=== PATIENT | female | born 1935 | race Caucasian/White ===

== ENCOUNTER 2019-05-07 16:27 | Inpatient (IN) | payer MEDICAID, MEDICARE ==
[~2019-05-07] VITALS: Ht 160 cm; Wt 77.1 kg
[2019-05-07] MEDS ORDERED: IV NORMAL SALINE 1000 ML BAG IV ONE (17:30)
[2019-05-07 17:58] LABS: BASOPHILS % (AUTO) 0.3 % (0.0-2.0); CARBON DIOXIDE 24 mmol/L (21-32); CHLORIDE 107 mmol/L (98-107); CREATININE 0.6 mg/dL (0.6-1.3); EOSINOPHILS % (AUTO) 0.1 % (0.0-7.0); GLUCOSE 125 mg/dL (74-106); HEMATOCRIT 37.8 % (31.2-41.9); HEMOGLOBIN 12.8 g/dL (10.9-14.3); LYMPHOCYTES # (AUTO) 0.9 K/uL (20.0-40.0); LYMPHOCYTES % (AUTO) 9.5 % (20.5-51.5); MEAN CORPUSCULAR HEMOGLOBIN 27.7 uug (24.7-32.8); MEAN CORPUSCULAR HGB CONC 34 g/dL (32.3-35.6); MEAN CORPUSCULAR VOLUME 81.8 fL (75.5-95.3); MONOCYTES # (AUTO) 0.7 K/uL (2.0-10.0); MONOCYTES % (AUTO) 7.1 % (0.0-11.0); NEUTROPHILS # (AUTO) 7.7 K/uL (1.8-8.9); PLATELET COUNT (AUTO) 173 K/uL (179-408); POTASSIUM 3.8 mmol/L (3.5-5.1); RED BLOOD CELL COUNT(AUTO) 4.62 MIL/uL (3.63-4.92); UREA NITROGEN, BLOOD 15 mg/dL (7-18); WHITE BLOOD COUNT (AUTO) 9.3 K/uL (3.8-11.8)
[2019-05-07] MEDS ORDERED: MORPHINE SULFATE 2 MG/1 ML DISP.SYRIN ONE ×2 (17:58→20:19)
[2019-05-07] MEDS ORDERED: ONDANSETRON 4 MG/2 ML VIAL ONE (17:58)
[2019-05-07] MEDS ORDERED: ONDANSETRON 4 MG/2 ML VIAL IV ONE (18:00)
[2019-05-07] MEDS ORDERED: MORPHINE SULFATE 2 MG/1 ML DISP.SYRIN IV ONE ×3 (18:00→22:15)
[2019-05-07 18:03] LABS: ALANINE AMINOTRANSFERASE 17 U/L (14-59); ALKALINE PHOSPHATASE 66 U/L (50-136); ASPARTATE AMINOTRANSFERASE 16 U/L (15-37); BILIRUBIN,DIRECT 0.2 mg/dL (0.0-0.2); BILIRUBIN,TOTAL 0.6 mg/dL (0.2-1.0); TOTAL PROTEIN, SERUM 6.7 g/dL (6.4-8.2)
--- NOTE | 2019-05-07 18:22 | NUR ---
URINE COLLECTED AND SENT TO LAB.
--- NOTE | 2019-05-07 18:30 | NUR ---
PT SIGNED CONSENT FOR IV CONTRAST FOR CTA, PLACED IN THE CHART.
[2019-05-07] MEDS ORDERED: SWABABLE VALVE TRANSFER SET EA MC ONE (18:48)
[2019-05-07] MEDS ORDERED: IOHEXOL 350 100 ML INFUS..BTL ONE (18:49)
[2019-05-07] MEDS ORDERED: IV NORMAL SALINE 250 ML IV ONE (18:49)
[2019-05-07 18:52] LABS: *BILIRUBIN,URIN NEGATIVE (NEGATIVE); *CLARITY,URINE CLEAR (CLEAR); *COLOR,URINE YELLOW (YELLOW); *KETONES,URINE TRACE (NEGATIVE); *UROBILINOGEN,URINE 0.2 E.U./dl (NORMAL); LEUKOCYTE ESTERASE ,URINE TRACE (NEGATIVE); NITRITE, URINE NEGATIVE (NEGATIVE); UGLUCOSE NEGATIVE (NEGATIVE)
--- NOTE | 2019-05-07 18:56 | NUR ---
PT OUT OF ER FOR CTA.
[2019-05-07 19:01] LABS: *BLOOD, URINE TRACE INTACT (NEGATIVE)
[2019-05-07 19:03] LABS: BACTERIA,URINE FEW /HPF (NONE SEEN); SQUAMOUS EPITHELIAL CELL,UR MANY /HPF (NONE SEEN)
--- NOTE | 2019-05-07 19:15 | NUR ---
RECIEVED REPORT FROM JESSE KRUGER. PATIENT STILL DOWNSTAIRS FOR CAT SCAN.
--- NOTE | 2019-05-07 19:26 | NUR ---
BACK TO ER FROM CAT SCAN
[2019-05-07] MEDS ORDERED: CEFTRIAXONE 1 G in IV DEXTROSE 5% 50 ML IV ONE (22:15)
--- NOTE | 2019-05-07 22:34 | NUR ---
Called [facility] for panel call. Admitting [employer] Yana Marie
--- NOTE | 2019-05-07 22:38 | NUR ---
CHARLI Marie called for panel call, transfer call to Dr Ahmadi.
--- NOTE | 2019-05-07 22:42 | NUR ---
Telephone call to patient willem Green and requested home medication list. Norma will call back, ER phone number provided.
[2019-05-07] MEDS ORDERED: CEFTRIAXONE 1 G VIAL ONE (22:55)
[2019-05-07] MEDS ORDERED: IV NS 1000 ML 1,000 ML IV PRN (23:09)
[2019-05-07] MEDS ORDERED: ACETAMINOPHEN 325 MG TABLET PO PRN (23:15)
[2019-05-07] MEDS ORDERED: Z GUARD REMEDY PASTE 57 GM TUBE TOP PRN (23:15)
[2019-05-07] MEDS ORDERED: ONDANSETRON 4 MG/2 ML VIAL IV PRN (23:15)
[2019-05-07] MEDS ORDERED: MORPHINE SULFATE 2 MG/1 ML DISP.SYRIN IV PRN (23:15)
--- NOTE | 2019-05-07 23:20 | NUR ---
Called to [facility], gave report to JESSE Wakefield.
[2019-05-07] MEDS ORDERED: DICL100G16 TP (23:43)
[2019-05-07] MEDS ORDERED: MELO-107 PO (23:43)
[2019-05-07] MEDS ORDERED: SPIR25TA6 PO (23:43)
[2019-05-07] MEDS ORDERED: IRON1TAB96 PO (23:43)
[2019-05-07] MEDS ORDERED: LISI1TAB27 PO (23:43)
[2019-05-07] MEDS ORDERED: DOCU100T9 PO (23:43)
--- NOTE | 2019-05-08 00:05 | NUR ---
Patient transfered to [facility] floor Room #[id number].
--- NOTE | 2019-05-08 00:15 | NUR ---
patient received from ER. ID band on. IV patent. Belongings list completed. a/ox3. no signs of acute distress. will continue to monitor and complete admissions process.
[2019-05-08 00:51] VITALS: BP 160/81
[2019-05-08 06:28] LABS: BASOPHILS % (AUTO) 0.3 % (0.0-2.0); EOSINOPHILS % (AUTO) 0.4 % (0.0-7.0); HEMATOCRIT 32.8 % (31.2-41.9); HEMOGLOBIN 11.2 g/dL (10.9-14.3); LYMPHOCYTES # (AUTO) 1.6 K/uL (20.0-40.0); LYMPHOCYTES % (AUTO) 26.1 % (20.5-51.5); MEAN CORPUSCULAR HGB CONC 34 g/dL (32.3-35.6); MEAN CORPUSCULAR VOLUME 82.3 fL (75.5-95.3); MONOCYTES # (AUTO) 0.6 K/uL (2.0-10.0); MONOCYTES % (AUTO) 10.1 % (0.0-11.0); NEUTROPHILS # (AUTO) 3.9 K/uL (1.8-8.9); NEUTROPHILS % (AUTO) 63.1 % (38.5-71.5); PLATELET COUNT (AUTO) 149 K/uL (179-408); RED BLOOD CELL COUNT(AUTO) 3.99 MIL/uL (3.63-4.92)
[2019-05-08 06:47] LABS: CARBON DIOXIDE 23 mmol/L (21-32); CHLORIDE 110 mmol/L (98-107); CHOLESTEROL 124 mg/dL (<200); CREATININE 0.5 mg/dL (0.6-1.3); GLUCOSE 94 mg/dL (74-106); HDL CHOLESTEROL 65 mg/dL (40-60); MAGNESIUM 1.6 mg/dL (1.8-2.4); PHOSPHOROUS 2.6 mg/dL (2.5-4.9); POTASSIUM 3.5 mmol/L (3.5-5.1); TRIGLYCERIDES 49 MG/DL (30-150); UREA NITROGEN, BLOOD 12 mg/dL (7-18)
[2019-05-08 06:54] VITALS: BP 136/64
[2019-05-08 06:59] LABS: THYROID STIMULATING HORMONE 1.161 mIU/mL (0.358-3.740)
[2019-05-08] MEDS: PANTOPRAZOLE SODIUM 40 MG TABLET.DR PO SCH (07:31)
[2019-05-08] MEDS: ENOXAPARIN SODIUM 40 MG/0.4 ML DISP.SYRIN SQ SCH (08:29)
[2019-05-08] MEDS ORDERED: MAGNESIUM OXIDE 400 MG TABLET PO ONE (10:15)
[2019-05-08 11:47] VITALS: BP 127/60
[2019-05-08] MEDS ORDERED: KETOROLAC TROMETHAMINE 15 MG INJ IVP PRN (12:00)
[2019-05-08] MEDS ORDERED: VOLTAREN XX SCH (12:45)
[2019-05-08] MEDS: HYDROCODONE/APAP 5-325MG TABLET PO PRN ×2 (13:14→17:52)
[2019-05-08] MEDS: HYDROCHLOROTHIAZIDE 12.5 MG CAPSULE PO SCH (13:14)
[2019-05-08] MEDS: LISINOPRIL 20 MG TABLET PO SCH (13:14)
[2019-05-08 13:21] LABS: WHITE BLOOD COUNT (AUTO) 6.3 K/uL (3.8-11.8)
[2019-05-08 16:05] VITALS: BP 123/85
[2019-05-08] MEDS: IV NS 1000 ML 1,000 ML IV PRN (17:44)
--- NOTE | 2019-05-08 19:30 | NUR ---
RECEIVED PT IN BED, AWAKE, IN NO ACUTE SIGNS OF DISTRESS. FAMILY AT BEDSIDE. NO C/O PAIN AT THIS TIME. WILL CONTINUE TO MONITOR.
[2019-05-08 20:24] VITALS: BP 139/68
[2019-05-08] MEDS: DOCUSATE SODIUM 100 MG CAPSULE PO SCH (20:47)
[2019-05-08] MEDS: FERROUS SULFATE 325 MG TABEC PO SCH (20:48)
[2019-05-08] MEDS ORDERED: DSS PO SCH (21:00)
[2019-05-08] MEDS ORDERED: CEphaleXIN 500 MG CAPSULE PO SCH (21:00)
[2019-05-08] MEDS ORDERED: IRON CARB PO SCH (21:00)
[2019-05-08] MEDS ORDERED: B12 PO SCH (21:00)
[2019-05-08] MEDS ORDERED: [UNRECOGNIZED DRUG - OTHER] PO SCH (21:00)
[2019-05-08] MEDS ORDERED: GLUC PO SCH (21:00)
--- NOTE | 2019-05-09 05:43 | NUR ---
PT IN BED, RESTING, IN NO ACUTE SIGNS OF DISTRESS, NO C/O PAIN. AMBULATES TO BATHROOM WITH SUPERVISION. IV FLUIDS RUNNING. CONTINUED TO MONITOR.
[2019-05-09] MEDS: PANTOPRAZOLE SODIUM 40 MG TABLET.DR PO SCH (06:22)
[2019-05-09 06:34] LABS: CARBON DIOXIDE 26 mmol/L (21-32); CHLORIDE 108 mmol/L (98-107); CREATININE 0.6 mg/dL (0.6-1.3); GLUCOSE 99 mg/dL (74-106); MAGNESIUM 1.9 mg/dL (1.8-2.4); PHOSPHOROUS 2.6 mg/dL (2.5-4.9); POTASSIUM 3.9 mmol/L (3.5-5.1); UREA NITROGEN, BLOOD 11 mg/dL (7-18)
[2019-05-09 06:35] LABS: BASOPHILS % (AUTO) 0.3 % (0.0-2.0); EOSINOPHILS # (AUTO) 0.1 K/uL (0.0-0.7); EOSINOPHILS % (AUTO) 2.4 % (0.0-7.0); HEMATOCRIT 36.8 % (31.2-41.9); HEMOGLOBIN 12.3 g/dL (10.9-14.3); LYMPHOCYTES # (AUTO) 1.9 K/uL (20.0-40.0); LYMPHOCYTES % (AUTO) 32.8 % (20.5-51.5); MEAN CORPUSCULAR HEMOGLOBIN 28.1 uug (24.7-32.8); MEAN CORPUSCULAR HGB CONC 34 g/dL (32.3-35.6); MEAN CORPUSCULAR VOLUME 84.1 fL (75.5-95.3); MONOCYTES # (AUTO) 0.5 K/uL (2.0-10.0); MONOCYTES % (AUTO) 7.9 % (0.0-11.0); NEUTROPHILS # (AUTO) 3.2 K/uL (1.8-8.9); NEUTROPHILS % (AUTO) 56.6 % (38.5-71.5); PLATELET COUNT (AUTO) 171 K/uL (179-408); RED BLOOD CELL COUNT(AUTO) 4.38 MIL/uL (3.63-4.92); WHITE BLOOD COUNT (AUTO) 5.7 K/uL (3.8-11.8)
[2019-05-09 06:47] VITALS: BP 158/63
--- NOTE | 2019-05-09 07:45 | NUR ---
Received patient resting in bed comfortably. In no acute distress at this time. Safety measures implemented. Bed in lowest and locked position. Call light within reach. Will continue to monitor.
[2019-05-09] MEDS: HYDROCHLOROTHIAZIDE 12.5 MG CAPSULE PO SCH (08:41)
[2019-05-09] MEDS: SPIRONOLACTONE 25 MG TABLET PO SCH (08:49)
[2019-05-09] MEDS: LISINOPRIL 20 MG TABLET PO SCH (08:50)
[2019-05-09] MEDS: HYDROCODONE/APAP 5-325MG TABLET PO PRN (08:51)
[2019-05-09] MEDS: MAGNESIUM HYDROXIDE 30 ML LIQUID UDC PO PRN (08:52)
[2019-05-09] MEDS: ENOXAPARIN SODIUM 40 MG/0.4 ML DISP.SYRIN SQ SCH (08:59)
[2019-05-09] MEDS ORDERED: Medication Not On Formulary EA (Lisinopril/HCTZ (Lisinopril-Hctz 20-12.5 Mg Tab) 1 TAB) PO SCH (09:00)
[2019-05-09] MEDS: CEFTRIAXONE 1 G in IV DEXTROSE 5% 50 ML IV SCH (10:05)
[2019-05-09] MEDS ORDERED: [UNRECOGNIZED DRUG - OTHER] TOP PRN (11:00)
[2019-05-09] MEDS ORDERED: VOLTAREN TOP PRN (11:00)
[2019-05-09 11:40] VITALS: BP 128/86
[2019-05-09 16:24] VITALS: BP 157/70
--- NOTE | 2019-05-09 18:04 | NUR ---
Patient resting in bed comfortably at this time. In no acute distress. NS running at 50 cc/hr. Safety measures implemented and effective. Comfort provided at all times. Will endorse to publishing systems analyst nurse accordingly.
[2019-05-09] MEDS: IV NS 1000 ML 1,000 ML IV PRN (19:29)
--- NOTE | 2019-05-09 19:41 | NUR ---
PATIENT RECEIVED IN BED ALERT AND AWAKE. BED IN LOWEST POSITION, BED ALARM ON. IV FLUIDS RUNNING.
[2019-05-09] MEDS: FERROUS SULFATE 325 MG TABEC PO SCH (20:09)
[2019-05-09] MEDS: DOCUSATE SODIUM 100 MG CAPSULE PO SCH (20:09)
[2019-05-09 20:12] VITALS: BP 159/64
[2019-05-10] MEDS: HYDROCODONE/APAP 5-325MG TABLET PO PRN ×2 (00:15→08:31)
[2019-05-10] MEDS: MAGNESIUM HYDROXIDE 30 ML LIQUID UDC PO PRN (04:53)
[2019-05-10] MEDS: PANTOPRAZOLE SODIUM 40 MG TABLET.DR PO SCH (06:07)
[2019-05-10 06:35] LABS: BASOPHILS % (AUTO) 0.5 % (0.0-2.0); EOSINOPHILS # (AUTO) 0.2 K/uL (0.0-0.7); EOSINOPHILS % (AUTO) 3.3 % (0.0-7.0); HEMATOCRIT 35.8 % (31.2-41.9); LYMPHOCYTES # (AUTO) 1.9 K/uL (20.0-40.0); LYMPHOCYTES % (AUTO) 40.1 % (20.5-51.5); MEAN CORPUSCULAR HEMOGLOBIN 27.8 uug (24.7-32.8); MEAN CORPUSCULAR HGB CONC 34 g/dL (32.3-35.6); MEAN CORPUSCULAR VOLUME 82.9 fL (75.5-95.3); MONOCYTES # (AUTO) 0.4 K/uL (2.0-10.0); NEUTROPHILS # (AUTO) 2.3 K/uL (1.8-8.9); NEUTROPHILS % (AUTO) 48.1 % (38.5-71.5); PLATELET COUNT (AUTO) 188 K/uL (179-408); RED BLOOD CELL COUNT(AUTO) 4.32 MIL/uL (3.63-4.92); WHITE BLOOD COUNT (AUTO) 4.9 K/uL (3.8-11.8)
[2019-05-10 06:44] LABS: CARBON DIOXIDE 27 mmol/L (21-32); CHLORIDE 109 mmol/L (98-107); CREATININE 0.6 mg/dL (0.6-1.3); GLUCOSE 102 mg/dL (74-106); POTASSIUM 3.8 mmol/L (3.5-5.1); UREA NITROGEN, BLOOD 8 mg/dL (7-18)
--- NOTE | 2019-05-10 06:45 | NUR ---
PATIENT IS ALERT AND AWAKE. BED ALARM ON AT LOWEST POSITION. MILK OF MAGNESIUM GIVEN, PATIENT HAS NOT HAD A BM FOR 3 DAYS. PATIENT IS IN NO DISTRESS AT THIS TIME.
[2019-05-10 06:54] VITALS: BP 145/64
[2019-05-10] MEDS: HYDROCHLOROTHIAZIDE 12.5 MG CAPSULE PO SCH (08:31)
[2019-05-10] MEDS: SPIRONOLACTONE 25 MG TABLET PO SCH (08:31)
[2019-05-10] MEDS: LISINOPRIL 20 MG TABLET PO SCH (08:31)
[2019-05-10] MEDS: ENOXAPARIN SODIUM 40 MG/0.4 ML DISP.SYRIN SQ SCH (08:34)
[2019-05-10] MEDS ORDERED: BISACODYL 5 MG TABLET.DR PO ONE (08:45)
[2019-05-10] MEDS: CEFTRIAXONE 1 G in IV DEXTROSE 5% 50 ML IV SCH (09:15)
--- NOTE | 2019-05-10 09:40 | NUR ---
Received patient awake in bed. AAOx4. Mainly Thai speaking but able to verbalize needs. Complained of right knee pain. PRN [place] and topical gel administered as needed. No complaints of pain at this time. Safety measures implemented. Call light within reach. Will continue to monitor.
--- NOTE | 2019-05-10 10:00 | NUR ---
Notified LION TRAINER that patient did not have bowel movement x3 days. Per LION TRAINER, ordered one time Dulcolax to be administered 2 hours after patient eat breakfast. Did not administer. Patient had one big bowel movement within that 2 hour interval.
[2019-05-10] MEDS ORDERED: HYDR-3326 PO (11:05)
[2019-05-10] MEDS ORDERED: CEPH-570 PO (11:05)
[2019-05-10 11:24] VITALS: BP 148/64
--- NOTE | 2019-05-10 13:30 | NUR ---
Discharge orders in place. Patient be discharged to home with family. New prescription and exit care/education provided. IV and ID band removed. Vital signs stable. In no acute distress. Denies pain. Patient discharged with walker to family.
== END 2019-05-10 13:30 | disposition home or self-care (01) | DRG 351 ==
LOC: ER 16:29 → MEDSURG3 23:46
PROVIDERS: ADMIT Registered Nurse; ATTEND Registered Nurse
DX: M17.11 Unilateral primary osteoarthritis, right knee (principal); D69.6 Thrombocytopenia, unspecified; N39.0 Urinary tract infection, site not specified; D25.9 Leiomyoma of uterus, unspecified; M16.0 Bilateral primary osteoarthritis of hip; E66.9 Obesity, unspecified; I89.0 Lymphedema, not elsewhere classified; M71.20 Synovial cyst of popliteal space [Baker], unspecified knee; M71.21 Synovial cyst of popliteal space [Baker], right knee; B96.89 Other specified bacterial agents as the cause of diseases classified elsewhere; G89.29 Other chronic pain; K44.9 Diaphragmatic hernia without obstruction or gangrene; K57.30 Diverticulosis of large intestine without perforation or abscess without bleeding; M11.261 Other chondrocalcinosis, right knee; K42.9 Umbilical hernia without obstruction or gangrene; I10 Essential (primary) hypertension; Z68.30 Body mass index [BMI] 30.0-30.9, adult; Z85.3 Personal history of malignant neoplasm of breast
CPT/HCPCS: 36415; 70030-TC; 72170; 73502; 73562; 76775; 83735; 84100; 84443; 85025; 85730; 87086; 93005; A4663; G0378; J0696; J1650; J2270; J2405; J7030; J7050; J7060; Q9967

== ENCOUNTER 2023-01-22 13:58 | Inpatient (IN) | payer MEDICARE, MEDICAID ==
[~2023-01-22] VITALS: Ht 152.4 cm; Wt 72.6 kg
[~2023-01-22 13:58] MED LIST: CEPH-570 PO; DICL100G16 TP; DOCU100T9 PO; HYDR-3326 PO; IRON1TAB96 PO; LISI1TAB55 PO; MELO-107 PO; SPIR25TA6 PO
[2023-01-22 14:21] LABS: HEMATOCRIT 36.3 % (31.2-41.9); MEAN CORPUSCULAR HEMOGLOBIN 24.2 uug (24.7-32.8); MEAN CORPUSCULAR VOLUME 76.3 fL (75.5-95.3); PLATELET COUNT (AUTO) 263 K/uL (179-408)
[2023-01-22 14:40] LABS: CARBON DIOXIDE 27 mmol/L (21-32); CHLORIDE 107 mmol/L (98-107); CREATININE 0.5 mg/dL (0.6-1.3); GLUCOSE 127 mg/dL (74-106); POTASSIUM 3.7 mmol/L (3.5-5.1); UREA NITROGEN, BLOOD 16 mg/dL (7-18)
[2023-01-22] MEDS ORDERED: MORPHINE SULFATE 2 MG/1 ML DISP.SYRIN IV ONE (15:00)
[2023-01-22] MEDS ORDERED: IV NORMAL SALINE 1000 ML BAG IV ONE (15:00)
[2023-01-22] MEDS ORDERED: ONDANSETRON 4 MG/2 ML VIAL IV ONE (15:00)
[2023-01-22] MEDS ORDERED: MORPHINE SULFATE 4 MG/1 ML DISP.SYRIN ONE (15:23)
[2023-01-22] MEDS ORDERED: ONDANSETRON 4 MG/2 ML VIAL IV PRN (15:30)
[2023-01-22] MEDS ORDERED: IV D5 1/2 NS 1000 ML 1,000 ML IV PRN (15:30)
[2023-01-22] MEDS ORDERED: MAGNESIUM HYDROXIDE 30 ML LIQUID UDC PO PRN (15:30)
[2023-01-22] MEDS ORDERED: ACETAMINOPHEN 325 MG TABLET PO PRN (15:30)
[2023-01-22] MEDS ORDERED: REMEDY ESSENTIAL ZINC PASTE 113 GM TP PRN (15:30)
[2023-01-22] MEDS ORDERED: HYDROCODONE/APAP 5-325MG TABLET PO PRN (15:30)
[2023-01-22] MEDS ORDERED: DEXTROSE 50% 50 ML DISP.SYRIN IV PRN (15:45)
[2023-01-22] MEDS ORDERED: FUROSEMIDE 20 MG/2 ML VIAL IV ONE ×2 (15:45→20:45)
[2023-01-22] MEDS: BLOOD SUGAR DIAGNOSTIC 1 EACH STRIP VI SCH ×2 (18:30→21:04)
[2023-01-22] MEDS ORDERED: hydrALAZINE HCL 20 MG/1 ML VIAL IV PRN (18:45)
[2023-01-22 18:54] VITALS: BP 148/87
[2023-01-22] MEDS: INSULIN REGULAR, HUMAN 300 UNIT/3 ML VIAL SQ PRN (19:18)
[2023-01-22 20:00] VITALS: BP 124/64
[2023-01-22] MEDS: MORPHINE SULFATE 2 MG/1 ML DISP.SYRIN IV PRN (20:04)
[2023-01-22] MEDS ORDERED: [UNRECOGNIZED DRUG - OTHER] PO SCH (21:00)
[2023-01-22] MEDS ORDERED: B12 PO SCH (21:00)
[2023-01-22] MEDS ORDERED: GLUC PO SCH (21:00)
[2023-01-22] MEDS ORDERED: DSS PO SCH (21:00)
[2023-01-22] MEDS ORDERED: IRON CARB PO SCH (21:00)
[2023-01-22] MEDS: DOCUSATE SODIUM 100 MG CAPSULE PO SCH (21:13)
[2023-01-23 03:53] VITALS: BP 110/62
[2023-01-23] MEDS: PANTOPRAZOLE SODIUM 40 MG TABLET.DR PO SCH (06:29)
[2023-01-23] MEDS: BLOOD SUGAR DIAGNOSTIC 1 EACH STRIP VI SCH ×4 (06:30→21:00)
[2023-01-23 06:54] LABS: HEMATOCRIT 32.4 % (31.2-41.9); MEAN CORPUSCULAR HEMOGLOBIN 24.8 uug (24.7-32.8); MEAN CORPUSCULAR VOLUME 75.2 fL (75.5-95.3); PLATELET COUNT (AUTO) 256 K/uL (179-408)
[2023-01-23 07:20] LABS: CARBON DIOXIDE 26 mmol/L (21-32); CHLORIDE 107 mmol/L (98-107); CREATININE 0.6 mg/dL (0.6-1.3); GLUCOSE 110 mg/dL (74-106); MAGNESIUM 1.6 mg/dL (1.8-2.4); PHOSPHOROUS 3.7 mg/dL (2.5-4.9); POTASSIUM 3.8 mmol/L (3.5-5.1); UREA NITROGEN, BLOOD 16 mg/dL (7-18)
[2023-01-23 07:33] LABS: THYROID STIMULATING HORMONE 1.727 mIU/mL (0.358-3.740)
[2023-01-23] MEDS: SPIRONOLACTONE 25 MG TABLET PO SCH (08:27)
[2023-01-23] MEDS: LISINOPRIL 20 MG TABLET PO SCH (08:28)
[2023-01-23] MEDS: MELOXICAM 7.5 MG TABLET PO SCH (08:28)
[2023-01-23] MEDS: HYDROCHLOROTHIAZIDE 12.5 MG CAPSULE PO SCH (08:28)
[2023-01-23 11:36] VITALS: BP 155/76
[2023-01-23] MEDS: MAGNESIUM SULFATE/D5W 100 ML IV SCH ×2 (11:37→12:39)
[2023-01-23] MEDS ORDERED: VANCOMYCIN 1000 MG VIAL ONE (12:38)
[2023-01-23] MEDS ORDERED: TRANEXAMIC ACID 1,000 MG/10 ML VIAL ONE ×2 (13:21→14:01)
[2023-01-23] MEDS ORDERED: MAGNESIUM SULFATE/D5W 200 ML ONE (14:02)
[2023-01-23] MEDS: MORPHINE SULFATE 2 MG/1 ML DISP.SYRIN IV PRN (14:35)
[2023-01-23] MEDS ORDERED: ONDANSETRON 4 MG/2 ML VIAL ONE ×2 (15:31→17:41)
[2023-01-23] MEDS ORDERED: ESMOLOL HCL 100 MG/10 ML VIAL IV ONE (15:31)
[2023-01-23] MEDS ORDERED: GLYCOPYRROLATE 0.2 MG/ML VIAL ONE (15:31)
[2023-01-23] MEDS ORDERED: LIDOCAINE-MPF 2% 5 ML VIAL ONE (15:31)
[2023-01-23] MEDS ORDERED: PROPOFOL 200 MG/20 ML BOTTLE ONE (15:31)
[2023-01-23] MEDS ORDERED: PHENYLEPHRINE 10 MG/1 ML VIAL ONE (15:31)
[2023-01-23] MEDS ORDERED: CEFAZOLIN 1 G VIAL ONE (15:31)
[2023-01-23] MEDS ORDERED: METOCLOPRAMIDE HCL 10 MG/2 ML VIAL ONE (15:31)
[2023-01-23] MEDS ORDERED: DEXAMETHASONE SOD PHOSPHATE 4 MG INJ ONE (15:31)
[2023-01-23] MEDS ORDERED: ETOMIDATE 20 MG/10 ML VIAL ONE (15:31)
[2023-01-23] MEDS ORDERED: KETAMINE HCL 200 MG/20 ML VIAL ONE (15:38)
[2023-01-23] MEDS ORDERED: FENTANYL CITRATE 100 MCG/2 ML AMPUL ONE (15:38)
[2023-01-23] MEDS ORDERED: FAMOTIDINE. 20 MG/2 ML VIAL IV ONE (15:39)
[2023-01-23] MEDS ORDERED: BUPIVACAINE 0.25% 30 ML VIAL ONE (15:39)
[2023-01-23] MEDS ORDERED: LIDOCAINE HCL 1% 20 ML VIAL ONE (16:46)
[2023-01-23] MEDS ORDERED: LABETALOL HCL 100 MG/20 ML VIAL ONE (17:16)
[2023-01-23] MEDS ORDERED: HYDROMORPHONE 1 MG/1 ML DISP.SYRIN ONE (17:25)
[2023-01-23] MEDS ORDERED: MORPHINE SULFATE 4 MG/1 ML DISP.SYRIN IV PRN (18:15)
[2023-01-23] MEDS: POTASSIUM CHLORIDE 20 MEQ in IV D5 1/2 NS 1000 ML 1,000 ML IV PRN (18:54)
[2023-01-23 20:32] VITALS: BP 177/78
[2023-01-23] MEDS: DOCUSATE SODIUM 100 MG CAPSULE PO SCH (20:47)
[2023-01-23] MEDS: INSULIN REGULAR, HUMAN 300 UNIT/3 ML VIAL SQ PRN (22:33)
[2023-01-24] MEDS: CEFAZOLIN 1 G in IV DEXTROSE 5% 50 ML IV SCH ×3 (00:08→15:30)
[2023-01-24 04:23] VITALS: BP 146/62
[2023-01-24 06:23] LABS: HEMATOCRIT 26.9 % (31.2-41.9); MEAN CORPUSCULAR HEMOGLOBIN 24.2 uug (24.7-32.8); MEAN CORPUSCULAR VOLUME 75.9 fL (75.5-95.3); PLATELET COUNT (AUTO) 210 K/uL (179-408)
[2023-01-24 06:36] LABS: CREATININE 0.6 mg/dL (0.6-1.3); MAGNESIUM 1.9 mg/dL (1.8-2.4); PHOSPHOROUS 2.3 mg/dL (2.5-4.9)
[2023-01-24] MEDS: BLOOD SUGAR DIAGNOSTIC 1 EACH STRIP VI SCH ×4 (07:50→21:01)
[2023-01-24] MEDS: PANTOPRAZOLE SODIUM 40 MG TABLET.DR PO SCH (07:50)
[2023-01-24] MEDS: HYDROCHLOROTHIAZIDE 12.5 MG CAPSULE PO SCH (08:30)
[2023-01-24] MEDS: SPIRONOLACTONE 25 MG TABLET PO SCH (08:30)
[2023-01-24] MEDS: INSULIN REGULAR, HUMAN 300 UNIT/3 ML VIAL SQ PRN ×4 (08:30→21:06)
[2023-01-24] MEDS: MELOXICAM 7.5 MG TABLET PO SCH (08:30)
[2023-01-24] MEDS: LISINOPRIL 20 MG TABLET PO SCH (08:38)
[2023-01-24 11:36] VITALS: BP 118/52
[2023-01-24] MEDS: POTASSIUM CHLORIDE 20 MEQ in IV D5 1/2 NS 1000 ML 1,000 ML IV PRN (11:48)
[2023-01-24] MEDS: HYDROCODONE/APAP 10-325 MG TABLET PO PRN (15:21)
[2023-01-24 15:35] VITALS: BP 121/46
[2023-01-24] MEDS ORDERED: NEUTRA PHOS PACKET PO ONE (16:00)
[2023-01-24 20:34] VITALS: BP 126/46
[2023-01-24] MEDS: DOCUSATE SODIUM 100 MG CAPSULE PO SCH (21:02)
[2023-01-25] MEDS: POTASSIUM CHLORIDE 20 MEQ in IV D5 1/2 NS 1000 ML 1,000 ML IV PRN (02:01)
[2023-01-25 04:36] VITALS: BP 141/61
[2023-01-25] MEDS: PANTOPRAZOLE SODIUM 40 MG TABLET.DR PO SCH ×2 (06:09→06:22)
[2023-01-25] MEDS: BLOOD SUGAR DIAGNOSTIC 1 EACH STRIP VI SCH ×4 (06:25→20:38)
[2023-01-25] MEDS: HYDROCODONE/APAP 10-325 MG TABLET PO PRN ×3 (06:26→20:52)
[2023-01-25 06:39] LABS: HEMATOCRIT 24.6 % (31.2-41.9); MEAN CORPUSCULAR HEMOGLOBIN 24.6 uug (24.7-32.8); MEAN CORPUSCULAR VOLUME 75.9 fL (75.5-95.3); PLATELET COUNT (AUTO) 200 K/uL (179-408)
[2023-01-25 07:04] LABS: CARBON DIOXIDE 25 mmol/L (21-32); CHLORIDE 105 mmol/L (98-107); CREATININE 0.6 mg/dL (0.6-1.3); GLUCOSE 122 mg/dL (74-106); MAGNESIUM 1.9 mg/dL (1.8-2.4); PHOSPHOROUS 2.9 mg/dL (2.5-4.9); POTASSIUM 4.2 mmol/L (3.5-5.1); UREA NITROGEN, BLOOD 21 mg/dL (7-18)
[2023-01-25] MEDS: INSULIN REGULAR, HUMAN 300 UNIT/3 ML VIAL SQ PRN ×2 (08:05→12:20)
[2023-01-25] MEDS ORDERED: HYDR-3980 PO (08:39)
[2023-01-25] MEDS ORDERED: FERR324T PO (08:39)
[2023-01-25] MEDS: HYDROCHLOROTHIAZIDE 12.5 MG CAPSULE PO SCH (08:45)
[2023-01-25] MEDS: SPIRONOLACTONE 25 MG TABLET PO SCH (08:45)
[2023-01-25] MEDS: LISINOPRIL 20 MG TABLET PO SCH (08:46)
[2023-01-25] MEDS ORDERED: MELOXICAM 7.5 MG TABLET PO SCH (09:00)
[2023-01-25 11:40] VITALS: BP 118/44
[2023-01-25 16:00] VITALS: BP 136/54
[2023-01-25 20:00] VITALS: BP 135/68
[2023-01-25] MEDS: DOCUSATE SODIUM 100 MG CAPSULE PO SCH (20:52)
[2023-01-25] MEDS ORDERED: FERROUS GLUCONATE 324 MG TABLET PO SCH (21:00)
[2023-01-26 04:00] VITALS: BP 153/64
[2023-01-26] MEDS: PANTOPRAZOLE SODIUM 40 MG TABLET.DR PO SCH (06:05)
[2023-01-26] MEDS: BLOOD SUGAR DIAGNOSTIC 1 EACH STRIP VI SCH ×3 (06:39→16:30)
[2023-01-26 09:00] VITALS: BP 166/68
[2023-01-26] MEDS: LISINOPRIL 20 MG TABLET PO SCH (09:38)
[2023-01-26] MEDS: SPIRONOLACTONE 25 MG TABLET PO SCH (09:38)
[2023-01-26] MEDS: HYDROCHLOROTHIAZIDE 12.5 MG CAPSULE PO SCH (09:39)
[2023-01-26 11:40] VITALS: BP 120/57
[2023-01-26] MEDS: HYDROCODONE/APAP 10-325 MG TABLET PO PRN ×2 (13:13→17:58)
[2023-01-26 15:57] VITALS: BP 148/64
== END 2023-01-26 18:40 | DRG 308 ==
LOC: ER 13:58 → MEDSURG3 17:59
PROVIDERS: ADMIT Registered Nurse; ATTEND Registered Nurse
PROC: 0QS706Z Reposition Left Upper Femur with Intramedullary Internal Fixation Device, Open Approach (ICD-10-PCS; principal; 2023-01-23)
DX: S72.142A Displaced intertrochanteric fracture of left femur, initial encounter for closed fracture (principal); I50.33 Acute on chronic diastolic (congestive) heart failure; Z68.31 Body mass index [BMI] 31.0-31.9, adult; I50.9 Heart failure, unspecified; F03.90 Unspecified dementia, unspecified severity, without behavioral disturbance, psychotic disturbance, mood disturbance, and anxiety; I11.0 Hypertensive heart disease with heart failure; G89.4 Chronic pain syndrome; W19.XXXA Unspecified fall, initial encounter; Y92.009 Unspecified place in unspecified non-institutional (private) residence as the place of occurrence of the external cause; I08.0 Rheumatic disorders of both mitral and aortic valves; Z86.73 Personal history of transient ischemic attack (TIA), and cerebral infarction without residual deficits; Z85.3 Personal history of malignant neoplasm of breast; E66.8 Other obesity; M19.90 Unspecified osteoarthritis, unspecified site; M54.30 Sciatica, unspecified side; M06.9 Rheumatoid arthritis, unspecified; Z79.899 Other long term (current) drug therapy; K44.9 Diaphragmatic hernia without obstruction or gangrene; M25.562 Pain in left knee; M25.561 Pain in right knee
CPT/HCPCS: 36415; 71045; 73502; 73503; 83735; 84100; 84443; 85025; 85730; 93005; 93307; A4649; A4663; A6209; C1713; G0378; J0360; J0690; J1100; J1170; J1815; J1940; J2270; J2370; J2405; J2765; J3010; J3370; J3475; J3480; J3490; J7040